=== PATIENT | female | born 1975 | race Caucasian/White ===

== ENCOUNTER 2020-09-28 15:41 | Emergency (ER) | payer BC ==
[2020-09-28 15:49] VITALS: BP 141/87; PULSE 92; RESP 20; TEMP 98.3
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
[2020-09-28] MEDS ORDERED: ACET/COD 300 MG/30 MG STARTER PACK 6 TAB BTL PO STA (18:03)
== END 2020-09-28 18:09 | disposition home or self-care (01) ==
LOC: EC 15:41
DX: S70.01XA Contusion of right hip, initial encounter (principal); S40.011A Contusion of right shoulder, initial encounter; V89.2XXA Person injured in unspecified motor-vehicle accident, traffic, initial encounter; Y92.410 Unspecified street and highway as the place of occurrence of the external cause
CPT/HCPCS: 71046; 73502; 99284

== ENCOUNTER → 2020-11-09 | Outpatient (CLI) | payer BC, OTHER ==
[2020-11-09 15:16] VITALS: BP 124/82; PULSE 74; RESP 18; TEMP 97.7; BMI 47.4
--- NOTE | 2020-11-09 16:02 | P.HPBAR ---
Bariatric H&P - History & Physicial H&P Date: 11/09/20 History & Physicial: Visit/CC: follow up / lap band Patient initial contact: Initial weight: Initial weight in pounds: Height: 5 ft 5 in Initial BMI: Last weight: Current weight: 129.319 kg Current weight in pounds: 285.10 Current BMI: 47.4 [place] body weight (based on NIH guidelines): 56.699 kg Excess body weight loss: The patient is a 45 year-old F who presents for Bariatric Assessment. Patient presents today for laparoscopic band follow. She's not been seen in many years. She states she's clean proximal and 80 pounds over the last 6 months. Past Medical History Past Medical History: No Reported History History of Any Multi-Drug Resistant Organisms: None Reported Past Surgical History: Bariatric Surgery, Cholecystectomy Additional Past Surgical History / Comment(s): Lap band surgery 2007. Past Anesthesia/Blood Transfusion Reactions: Postoperative Nausea & Vomiting (P ONV) Past Psychological History: No Psychological Hx Reported Smoking Status: Never smoker Past Alcohol Use History: None Reported Past Drug Use History: None Reported Surgical - Exam Vital Signs Temp Pulse Resp BP 97.7 F 74 18 124/82 11/09/20 15:05 11/09/20 15:05 11/09/20 15:05 11/09/20 15:05 - General well developed, well nourished, no distress - Eyes PERRL - ENT normal pinna - Neck no masses - Respiratory normal expansion - Cardiovascular Rhythm: regular - Abdomen Abdomen: soft, non tender Bariatric Assessment & Plan Plan: Patient's lap band adjusted. She had 1 mL added. She currently has 3 mL in the band. She'll follow-up in 4 weeks. Bariatric Checklist Checklist: Plan: Checklist: EGD: 1. Hiatal hernia: 2. H. Pylori: HgbA1c: Vitamin D: Smoking: Primary care physician referral: Dr. Balderas ([place]) Psychiatry clearance: Cardiology clearance: Sleep study: Diet journal: VTE risk score: VTE risk level: Rehab needs at discharge:
== END | disposition home or self-care (01) ==
LOC: BARWHC3 14:37
PROVIDERS: ATTEND Surgery
DX: E66.01 Morbid (severe) obesity due to excess calories (principal); Z68.42 Body mass index [BMI] 45.0-49.9, adult
CPT/HCPCS: 99212

== ENCOUNTER → 2020-12-21 | Outpatient (CLI) | payer BC ==
[2020-12-21 13:12] VITALS: BP 131/85; PULSE 86; TEMP 98.1; BMI 47.4
--- NOTE | 2020-12-21 13:35 | P.HPBAR ---
Bariatric H&P - History & Physicial H&P Date: 12/21/20 History & Physicial: Visit/CC: lap band follow up Patient initial contact: Initial weight: Initial weight in pounds: Height: 5 ft 5 in Initial BMI: Last weight: Current weight: 129.274 kg Current weight in pounds: 285.00 Current BMI: 47.4 [place] body weight (based on NIH guidelines): 56.699 kg Excess body weight loss: The patient is a 45 year-old F who presents for Bariatric Assessment. Patient presents today for LAP-BAND follow-up. She's had difficulty with chronic dysphagia. She is unable to have her band adjusted to point where she can feel full she'll was sent up with dysphagia once the band was adjusted significantly. She is requesting conversion to sleeve gastrectomy. Patient also has complaints of pain at her port site. Past Medical History Past Medical History: No Reported History History of Any Multi-Drug Resistant Organisms: None Reported Past Surgical History: Bariatric Surgery, Cholecystectomy Additional Past Surgical History / Comment(s): Lap band surgery 2007. Past Anesthesia/Blood Transfusion Reactions: Postoperative Nausea & Vomiting (PONV) Smoking Status: Never smoker Surgical - Exam Vital Signs Temp Pulse BP 98.1 F 86 131/85 12/21/20 13:10 12/21/20 13:10 12/21/20 13:10 - General well developed, well nourished, no distress - Eyes PERRL - ENT normal pinna - Neck no masses - Respiratory normal expansion - Cardiovascular Rhythm: regular - Abdomen Pain at port site Abdomen: soft, non tender Bariatric Assessment & Plan Plan: Status post gastric band. Patient's had continued issues with dysphagia and port site pain. We will attempt to obtain authorization for conversion to sleeve gastrectomy. Bariatric Checklist Checklist: Plan: Checklist: EGD: 1. Hiatal hernia: 2. H. Pylori: HgbA1c: Vitamin D: Smoking: Primary care physician referral: Dr. Balderas ([place]) Psychiatry clearance: Cardiology clearance: Sleep study: Diet journal: VTE risk score: VTE risk level: Rehab needs at discharge:
== END | disposition home or self-care (01) ==
LOC: BARWHC3 12:45
PROVIDERS: ATTEND Surgery
DX: Z09 Encounter for follow-up examination after completed treatment for conditions other than malignant neoplasm (principal)
CPT/HCPCS: 99211

== ENCOUNTER → 2021-06-28 | Outpatient (CLI) | payer BC ==
[2021-06-28 18:22] LABS: Basophils # (A) 0.06 X 10*3/uL (0.00-0.10); Basophils % (A) 0.7 %; Eosinophils # (A) 0.31 X 10*3/uL (0.04-0.35); Eosinophils % (A) 3.8 %; HCT 37.4 % (37.2-46.3); HGB 10.9 g/dL (12.0-15.0); Immature Grans, Automated 0.4 %; Lymphocytes # (A) 1.79 X 10*3/uL (0.90-5.00); MCH 23.9 pg (27.0-32.0); MCHC 29.1 g/dL (32.0-37.0); MCV 81.8 fL (80.0-97.0); Mean Platelet Volume 10.5 fL (9.5-12.2); Monocytes # (A) 0.69 X 10*3/uL (0.20-1.00); Monocytes % (A) 8.5 %; NRBC Per 100 WBC 0 /100 WBCS (0.0-0.0); Neutrophils # (A) 5.24 X 10*3/uL (1.80-7.70); Neutrophils % (A) 64.6 %; Platelet Count 313 X 10*3/uL (140-440); RBC 4.57 X 10*6/uL (4.10-5.20); RDW 18.8 % (11.5-14.5); WBC 8.12 X 10*3/uL (4.50-10.00)
[2021-06-28 22:15] LABS: ALT 26 U/L (8-44); AST 26 U/L (13-35); African American GFR (CKD) 122.9 (60.0-200.0); Albumin 4.2 g/dL (3.8-4.9); Albumin/Globulin Ratio 1.61 (1.60-3.17); Alkaline Phosphatase 131 U/L (41-126); BUN/Creat Ratio 17.93 Ratio (12.00-20.00); Blood Urea Nitrogen 11.8 mg/dL (9.0-27.0); Calcium 9.4 mg/dL (8.7-10.3); Chloride 104 mmol/L (96-109); Globulin 2.6 g/dL (1.6-3.3); Glucose 93 mg/dL (70-110); Potassium 4.5 mmol/L (3.5-5.5); Sodium 141 mmol/L (135-145); Total Bilirubin <0.15 mg/dL (0.30-1.20); Total Protein 6.8 g/dL (6.2-8.2)
== END | disposition home or self-care (01) ==
LOC: LABPAT 13:39
PROVIDERS: ATTEND Surgery
DX: Z01.812 Encounter for preprocedural laboratory examination (principal)
CPT/HCPCS: 36415; 80053; 85025

== ENCOUNTER → 2021-06-28 | Outpatient (CLI) | payer BC ==
[2021-06-28 12:51] VITALS: BMI 51.0
[2021-06-28 13:55] VITALS: BP 128/80; PULSE 76; TEMP 98.8
== END | disposition home or self-care (01) ==
LOC: BARWHC3 08:37
PROVIDERS: ATTEND Surgery
DX: E66.01 Morbid (severe) obesity due to excess calories (principal); Z68.43 Body mass index [BMI] 50.0-59.9, adult
CPT/HCPCS: 97804; 99211

== ENCOUNTER 2021-07-01 09:46 | Day surgery (SDC) | payer BC ==
[2021-06-29 14:35] VITALS: BMI 50.5
[~2021-07-01 09:46] MED LIST: LACTATED RINGERS 1,000 ML IV SCH; LIDOCAINE 1% (10MG/ML) FOR IV START INTRADERMA PRN
[2021-07-01 10:05] VITALS: RESP 16; TEMP 98.1
[2021-07-01] MEDS ORDERED: PROPOFOL 10 MG/ML 20 ML VIAL IV ONE (10:23)
[2021-07-01] MEDS ORDERED: LIDOCAINE 1% INJ 10MG/ML (20 ML MDV) ONE (10:23)
[2021-07-01] MEDS ORDERED: ONDANSETRON 4 MG/2 ML VIAL ONE (10:23)
--- NOTE | 2021-07-01 10:25 | P.GSHP ---
History of Present Illness H&P Date: 07/01/21 Chief Complaint: GERD, morbid obesity This a 46-year-old female presents today for EGD. Patient underwent workup for sleeve gastrectomy. He is morbidly obese. BMI is 51. She's had some GERD symptoms. Past Medical History Past Medical History: No Reported History Additional Past Medical History / Comment(s): LAP BAND History of Any Multi-Drug Resistant Organisms: None Reported Past Surgical History: Bariatric Surgery, Cholecystectomy Additional Past Surgical History / Comment(s): Lap band surgery 2007. Past Anesthesia/Blood Transfusion Reactions: Postoperative Nausea & Vomiting (PONV) Past Alcohol Use History: None Reported - Past Family History Mother Family Medical History: No Reported History Medications and Allergies Home Medications Medication Instructions Recorded Confirmed Type Cholecalciferol [Vitamin D3 (25 25 mcg PO DAILY 06/29/21 07/01/21 History Mcg = 1000 Iu)] Iron 25 mg PO DAILY 06/29/21 07/01/21 History Naproxen Sodium [Aleve] 220 mg PO DIRECTED PRN 06/29/21 07/01/21 History Vitamin A (Unknown Dose) 1 dose PO DAILY 06/29/21 07/01/21 History Zinc 50 mg PO DAILY 06/29/21 07/01/21 History Allergies Allergy/AdvReac Type Severity Reaction Status Date / Time No Known Allergies Allergy Verified 07/01/21 10:02 Surgical - Exam Vital Signs Temp Pulse Resp BP Pulse Ox 98.1 F 84 16 154/89 100 07/01/21 10:04 07/01/21 10:04 07/01/21 10:04 07/01/21 10:04 07/01/21 10:04 - General well developed, well nourished, no distress - Eyes PERRL - ENT normal pinna - Neck no masses - Respiratory normal expansion - Cardiovascular Rhythm: regular - Abdomen Abdomen: soft, non tender Assessment and Plan Assessment: GERD. Morbid Obesity. We'll perform EGD.
--- NOTE | 2021-07-01 10:31 | P.OP ---
Date of Procedure: 07/01/21 Preoperative Diagnosis: GERD Morbid obesity Postoperative Diagnosis: Antral gastritis Small hiatal hernia Mild esophagitis Procedure(s) Performed: EGD Anesthesia: MAC Surgeon: Isaias Carrasquillo Pathology: other (Antrum, esophagus) Condition: stable Disposition: PACU Description of Procedure: The patient's placed on the endoscopy table in the lateral position she received IV sedation. The gastroscope placed oropharynx passed in the esophagus into the stomach. Scope then placed through the pylorus. The first and second portion of the duodenum appeared normal. Scope summer back the antrum this was mildly inflamed. A biopsies performed. The scope was retroflexed and remainder stomach appeared normal. There was a small hiatal hernia. The GE junction was at 38 cm. The distal esophagus appeared mildly inflamed. A biopsies performed. The proximal esophagus appeared normal. Scope withdrawn for patient.
[2021-07-01 10:50] VITALS: BP 122/79; PULSE 70
== END 2021-07-01 11:15 | disposition home or self-care (01) ==
LOC: ORWHC2ENDO 09:46
PROVIDERS: ATTEND Surgery
DX: K29.50 Unspecified chronic gastritis without bleeding (principal); K21.9 Gastro-esophageal reflux disease without esophagitis; K44.9 Diaphragmatic hernia without obstruction or gangrene; E66.01 Morbid (severe) obesity due to excess calories; Z68.43 Body mass index [BMI] 50.0-59.9, adult; Z98.84 Bariatric surgery status; Z90.49 Acquired absence of other specified parts of digestive tract
CPT/HCPCS: 81025; 88305; 43239; J2405; J2001; J2704

== ENCOUNTER 2021-07-20 06:39 | Observation (INO) | payer BC ==
[~2021-07-20 06:39] MED LIST changes: +ENOXAPARIN 40 MG/0.4 ML SYRINGE SQ PRN; -LACTATED RINGERS 1,000 ML IV SCH; -LIDOCAINE 1% (10MG/ML) FOR IV START INTRADERMA PRN; +ceFAZolin 3 GM in SODIUM CHLORIDE 0.9% 100 ML IVPB PRN
[2021-07-20] MEDS ORDERED: DEXAMETHASONE SOD PHOSPHATE 4 MG/ML 1 ML VIAL IV ONE (06:50)
[2021-07-20] MEDS ORDERED: SCOPOLAMINE 1.5MG/72HR PATCH TRANSDERM ONE (06:50)
[2021-07-20] MEDS ORDERED: LIDOCAINE 1% (10MG/ML) FOR IV START INTRADERMA PRN (06:50)
[2021-07-20] MEDS ORDERED: ONDANSETRON 4 MG/2 ML VIAL IVP ONE (06:50)
[2021-07-20] MEDS ORDERED: LACTATED RINGERS 1,000 ML IV SCH (06:50)
[2021-07-20] MEDS ORDERED: MIDAZOLAM 2 MG/2 ML VIAL IVP ONE (07:33)
[2021-07-20 07:34] LABS: Anisocytosis Slight; Basophils # (A) 0.1 k/uL (0-0.2); Basophils % (A) 1 %; Eosinophils # (A) 0.2 k/uL (0-0.7); Eosinophils % (A) 2 %; HCT 39.4 % (34.0-46.0); HGB 12.4 gm/dL (11.4-16.0); Hypochromasia Slight; Lymphocytes # (A) 1.3 k/uL (1.0-4.8); Lymphocytes % (A) 16 %; MCH 25.7 pg (25.0-35.0); MCHC 31.6 g/dL (31.0-37.0); MCV 81.3 fL (80.0-100.0); Mean Platelet Volume 8.3; Monocytes # (A) 0.5 k/uL (0-1.0); Monocytes % (A) 6 %; Neutrophils % (A) 74 %; Platelet Count 305 k/uL (150-450); RBC 4.85 m/uL (3.80-5.40); RDW 16.1 % (11.5-15.5); WBC 8.1 k/uL (3.8-10.6)
[2021-07-20] MEDS ORDERED: MIDAZOLAM 2 MG/2 ML VIAL ONE (07:47)
[2021-07-20] MEDS ORDERED: fentaNYL (PF) 50 MCG/ML 2 ML AMP ONE (07:47)
[2021-07-20] MEDS ORDERED: KETAMINE 10 MG/ML 20 ML VIAL ONE (07:47)
[2021-07-20] MEDS ORDERED: GLYCOPYRROLATE 0.2 MG/ML 2 ML VIAL ONE (07:47)
[2021-07-20] MEDS ORDERED: HEPARIN SODIUM,PORCINE 5,000 UNIT/ML 1 ML VIAL ONE (07:47)
[2021-07-20] MEDS ORDERED: ROCURONIUM 10 MG/ML (5 ML VIAL) IV ONE (07:47)
[2021-07-20] MEDS ORDERED: PROPOFOL 10 MG/ML 20 ML VIAL IV ONE (07:47)
[2021-07-20] MEDS ORDERED: SUCCINYLCHOLINE CHLORIDE 100 MG/5 ML SYR IV ONE (07:47)
[2021-07-20] MEDS ORDERED: NEOSTIGMINE 1 MG/ML 10 ML VIAL ONE (07:47)
[2021-07-20 07:59] LABS: ALT 20 U/L (4-34); AST 33 U/L (14-36); African American GFR (CKD) >90 (>60 ml/min/1.73 sqM); Albumin 4.1 g/dL (3.5-5.0); Alkaline Phosphatase 97 U/L (38-126); Anion Gap 12 mmol/L; Blood Urea Nitrogen 9 mg/dL (7-17); Calcium 8.5 mg/dL (8.4-10.2); Carbon Dioxide 22 mmol/L (22-30); Chloride 104 mmol/L (98-107); Glucose 74 mg/dL (74-99); Non-African American GFR(CKD) >90 (>60 ml/min/1.73 sqM); Potassium 3.3 mmol/L (3.5-5.1); Sodium 138 mmol/L (137-145); Total Bilirubin 0.6 mg/dL (0.2-1.3); Total Protein 7.5 g/dL (6.3-8.2)
--- NOTE | 2021-07-20 08:07 | P.GSHP ---
History of Present Illness H&P Date: 07/20/21 Chief Complaint: Morbid obesity, dysphagia, GERD Is a 46-year-old female who is morbidly obese. Her BMI is 49. Patient has had issues with her LAP-BAND. She's had issues with dysphagia and GERD. She presents today for removal LAP-BAND conversion sleeve gastrectomy. Patient's aware the risks of surgery including conversion to the open procedure injury to the stomach liver spleen. He is also aware the risk of gastric staple line bleeding and disruption. Past Medical History Past Medical History: No Reported History Additional Past Medical History / Comment(s): HIATAL HERNIA, ANEMIA, LAP BAND History of Any Multi-Drug Resistant Organisms: None Reported Past Surgical History: Bariatric Surgery, Cholecystectomy Additional Past Surgical History / Comment(s): Lap band surgery 2007., PANNICULECTOMY (2011)., EGD Past Anesthesia/Blood Transfusion Reactions: Motion Sickness, Postoperative Nausea & Vomiting (PONV) Past Psychological History: No Psychological Hx Reported Smoking Status: Never smoker Past Alcohol Use History: Rare Past Drug Use History: None Reported - Past Family History Mother Family Medical History: No Reported History Medications and Allergies Home Medications Medication Instructions Recorded Confirmed Type Cholecalciferol [Vitamin D3 (25 25 mcg PO DAILY 06/29/21 07/20/21 History Mcg = 1000 Iu)] Iron 25 mg PO DAILY 06/29/21 07/20/21 History Naproxen Sodium [Aleve] 220 mg PO DIRECTED PRN 06/29/21 07/20/21 History Zinc 50 mg PO DAILY 06/29/21 07/20/21 History Multivitamins, Thera [Multivitamin 1 tab PO DAILY 07/09/21 07/20/21 History (formulary)] Allergies Allergy/AdvReac Type Severity Reaction Status Date / Time No Known Allergies Allergy Verified 07/20/21 06:57 Surgical - Exam Vital Signs Temp Pulse Resp BP Pulse Ox 98.7 F 98 18 123/73 99 07/20/21 07:13 07/20/21 07:13 07/20/21 07:13 07/20/21 07:13 07/20/21 07:13 - General well developed, well nourished, no distress - Eyes PERRL - ENT normal pinna - Neck no masses - Respiratory normal expansion - Cardiovascular Rhythm: regular - Abdomen Abdomen: soft, non tender Results - Labs 07/20/21 07:23 07/20/21 07:23 Abnormal Lab Results - Last 24 Hours (Table) 07/20/21 07/20/21 Range/Units 07:23 07:23 RDW 16.1 H (11.5-15.5) % Potassium 3.3 L (3.5-5.1) mmol/L Diabetes panel 07/20/21 Range/Units 07:23 Sodium 138 (137-145) mmol/L Potassium 3.3 L (3.5-5.1) mmol/L Chloride 104 (98-107) mmol/L Carbon Dioxide 22 (22-30) mmol/L BUN 9 (7-17) mg/dL Creatinine 0.53 (0.52-1.04) mg/dL Glucose 74 (74-99) mg/dL Calcium 8.5 (8.4-10.2) mg/dL AST 33 (14-36) U/L ALT 20 (4-34) U/L Alkaline Phosphatase 97 (38-126) U/L Total Protein 7.5 (6.3-8.2) g/dL Albumin 4.1 (3.5-5.0) g/dL Calcium panel 07/20/21 Range/Units 07:23 Calcium 8.5 (8.4-10.2) mg/dL Albumin 4.1 (3.5-5.0) g/dL Pituitary panel 07/20/21 Range/Units 07:23 Sodium 138 (137-145) mmol/L Potassium 3.3 L (3.5-5.1) mmol/L Chloride 104 (98-107) mmol/L Carbon Dioxide 22 (22-30) mmol/L BUN 9 (7-17) mg/dL Creatinine 0.53 (0.52-1.04) mg/dL Glucose 74 (74-99) mg/dL Calcium 8.5 (8.4-10.2) mg/dL Adrenal panel 07/20/21 Range/Units 07:23 Sodium 138 (137-145) mmol/L Potassium 3.3 L (3.5-5.1) mmol/L Chloride 104 (98-107) mmol/L Carbon Dioxide 22 (22-30) mmol/L BUN 9 (7-17) mg/dL Creatinine 0.53 (0.52-1.04) mg/dL Glucose 74 (74-99) mg/dL Calcium 8.5 (8.4-10.2) mg/dL Total Bilirubin 0.6 (0.2-1.3) mg/dL AST 33 (14-36) U/L ALT 20 (4-34) U/L Alkaline Phosphatase 97 (38-126) U/L Total Protein 7.5 (6.3-8.2) g/dL Albumin 4.1 (3.5-5.0) g/dL Assessment and Plan Assessment: Morbid obesity GERD Dysphagia We'll perform removal of LAP-BAND and conversion to sleeve gastrectomy
[2021-07-20] MEDS ORDERED: BUPIVACAIN-EPI 0.25%-1:200,000 30 ML VIAL SQ ONE ×2 (08:27)
[2021-07-20] MEDS ORDERED: LACTATED RINGERS 1,000 ML IV ONE (09:32)
[2021-07-20] MEDS ORDERED: NALOXONE 0.4 MG/ML 1 ML VIAL IV PRN (09:57)
[2021-07-20] MEDS ORDERED: HYDROcodone/APAP 15 ML SOLUTION PO PRN (09:57)
[2021-07-20] MEDS ORDERED: HYDROmorphone 1 MG/ML 1 ML SYRINGE IVP PRN (09:57)
--- NOTE | 2021-07-20 09:57 | P.OP ---
Date of Procedure: 07/20/21 Preoperative Diagnosis: Morbid obesity, BMI 49 GERD Dysphagia Postoperative Diagnosis: Morbid obesity Adhesions Procedure(s) Performed: Laparoscopic lysis of extensive adhesions Laparoscopic removal of LAP-BAND Laparoscopic sleeve gastrectomy Anesthesia: DC Surgeon: Isaias Carrasquillo Estimated Blood Loss (ml): 25 Pathology: other (LAP-BAND device) Condition: stable Disposition: PACU Description of Procedure: The patient was placed on the operating room table in the supine position. She received general anesthesia and then was placed in dorsal lithotomy position. Her abdomen was prepped and draped in sterile fashion. The skin incision sites were anesthetized 1% local Xylocaine. The patient's LAP-BAND port was in the supraumbilical position. The skin was incised and using cautery and sharp dissection Rishabh port was dissected free and sent to pathology. The connecting tube was cut. And then the skin was incised with an 11 blade in the left lateral position. Using a blade less trocar under direct visualization the peritoneal cavity was entered. The abdomen was insufflated and then a 5 mm laparoscope was placed into the peritoneal cavity. A 5 mm trocar was placed in the right epigastric, and right lateral position. A 15 mm trocar was placed in the supra-umbilical position and another 5 mm trocar was placed in the left lateral position. The left lateral lobe of the liver was retracted. The stomach was visualized. There was extensive adhesions around the stomach and LAP-BAND device. Approximately 20 minutes of operative time used to lyse adhesions. The anterior gastric wall plication was taken down using sharp dissection. The patient had previously placed Nitinol clips holding the gastric plication. Care was taken to identify and preserve the gastric wall. The LAP-BAND device was then cut and then freed from around stomach. The LAP-BAND device and extracted through the 15 mm port site. The greater curvature of the stomach was then dissected using the Harmonic scissors. The dissection occurred approximately 5 cm from the pylorus to the level of the left praneeth. There was no hiatal hernia seen. At this point a 40- Swedish bougie dilator was placed the oropharynx and passed into the esophagus and into the stomach by the WATER TREATMENT TECHNICIAN. The sleeve gastrectomy was performed by using the powered echelon stapler with a seam guard buttress material. Sequential firings of the stapler were performed. The gastric remnant was then brought out through the 15 mm trocar site. The dilator was withdrawn. And a orogastric tube was replaced into the stomach. The stomach was insufflated with 200 mL of methylene blue normal saline. There was no evidence of extravasation. The abdomen was irrigated there is no bleeding seen. The Oj-Randell device was used to close the 15 mm trocar with 0 Vicryl. Skin was closed with interrupted 3-0 Monocryl sutures once the trochars withdrawn. Dermabond dressing was applied. Patient was sent to recovery in stable condition.
[2021-07-20] MEDS: HYDROmorphone 0.5 MG/0.5 ML SYRINGE IVP PRN ×2 (10:15→11:02)
[2021-07-20] MEDS: ALBUTEROL NEBULIZED 2.5 MG/3 ML INHALATION SCH ×4 (12:00→19:46)
[2021-07-20] MEDS: ONDANSETRON 4 MG/2 ML VIAL IVP PRN ×2 (13:39→21:12)
[2021-07-20] MEDS: KETOROLAC 15 MG/ML 1 ML VIAL IVP SCH ×2 (14:25→17:13)
[2021-07-20] MEDS: 0.9% NACL WITH KCL 20 MEQ/L 1,000 ML IV SCH (14:25)
[2021-07-20] MEDS: SIMETHICONE 40 MG/0.6 ML DROPS 2,000 MG/30 ML BOTTLE PO PRN (17:13)
[2021-07-20] MEDS: HYOSCYAMINE ORAL DROPS 1.875 MG/15 ML BOTTLE PO PRN (17:13)
[2021-07-21] MEDS: 0.9% NACL WITH KCL 20 MEQ/L 1,000 ML IV SCH ×2 (00:14→04:51)
[2021-07-21] MEDS: KETOROLAC 15 MG/ML 1 ML VIAL IVP SCH ×4 (00:14→19:35)
[2021-07-21] MEDS: HYOSCYAMINE ORAL DROPS 1.875 MG/15 ML BOTTLE PO PRN ×2 (00:15→05:15)
[2021-07-21] MEDS: SIMETHICONE 40 MG/0.6 ML DROPS 2,000 MG/30 ML BOTTLE PO PRN ×3 (00:15→17:31)
[2021-07-21] MEDS: ONDANSETRON 4 MG/2 ML VIAL IVP PRN (06:04)
[2021-07-21] MEDS: ALBUTEROL NEBULIZED 2.5 MG/3 ML INHALATION SCH ×4 (08:46→20:09)
--- NOTE | 2021-07-21 09:16 | FL ---
EXAMINATION TYPE: FL UGI DATE OF EXAM: 07/21/2021 COMPARISON: None HISTORY: Gastric sleeve TECHNIQUE: A single contrast UGI study is performed. FINDINGS: Contrast passes from the distal esophagus through the gastric sleeve with mild hesitancy. N o extravasation of contrast is evident. Very minimal free air is noted during this examination. Overhead radiographs were obtained which are unremarkable. IMPRESSIONS: 1. Post gastric sleeve without obstruction or significant hesitancy. No extravasation.
[2021-07-21 09:31] LABS: Basophils # (A) 0.01 X 10*3/uL (0.00-0.10); Basophils % (A) 0.1 %; Eosinophils # (A) 0 X 10*3/uL (0.04-0.35); Eosinophils % (A) 0 %; HCT 37.2 % (37.2-46.3); HGB 11.1 g/dL (12.0-15.0); Immature Grans, Automated 0.3 %; Lymphocytes # (A) 0.89 X 10*3/uL (0.90-5.00); Lymphocytes % (A) 7.1 %; MCH 24.3 pg (27.0-32.0); MCHC 29.8 g/dL (32.0-37.0); MCV 81.4 fL (80.0-97.0); Mean Platelet Volume 10.9 fL (9.5-12.2); Monocytes # (A) 1.01 X 10*3/uL (0.20-1.00); NRBC Per 100 WBC 0 /100 WBCS (0.0-0.0); Neutrophils # (A) 10.64 X 10*3/uL (1.80-7.70); Neutrophils % (A) 84.5 %; Platelet Count 343 X 10*3/uL (140-440); RBC 4.57 X 10*6/uL (4.10-5.20); RDW 17.3 % (11.5-14.5); WBC 12.59 X 10*3/uL (4.50-10.00)
[2021-07-21] MEDS: ENOXAPARIN 40 MG/0.4 ML SYRINGE SQ SCH (09:35)
[2021-07-21 09:40] LABS: African American GFR (CKD) 126.5 (60.0-200.0); Anion Gap 13.5 mmol/L (10.00-18.00); Blood Urea Nitrogen 5.1 mg/dL (9.0-27.0); Carbon Dioxide 15.1 mmol/L (20.0-27.5); Non-African American GFR(CKD) 109.1 (60.0-200.0); Potassium 4.9 mmol/L (3.5-5.5)
[2021-07-21] MEDS: PANTOPRAZOLE 40 MG/10 ML VIAL IV SCH (09:47)
[2021-07-21] MEDS: METOCLOPRAMIDE 5 MG/ML 2 ML VIAL IVP PRN ×2 (10:00→19:35)
[2021-07-21] MEDS: 1: THIAMINE 100 MG, FOLIC ACID 1 MG, POTASSIUM CHLORIDE 20 MEQ in SODIUM CHLORIDE 0.9% 1 IVPB SCH ×10 (10:37→23:11)
--- NOTE | 2021-07-21 13:31 | P.CONS ---
History of Present Illness - Reason for Consult Consult date: 07/21/21 Medical management, lap band removal status post LEEP gastrectomy - History of Present Illness This is a pleasant 46 are old female who was recently admitted under Gen. surgery services for subsequent removal of lap band with conversion of sleeve gastrectomy postop day #1. Patient denies past medical history except for morbid obesity and has been having some dysphagia and acid reflux. Patient had initial lap band surgery back in 2007 and also underwent panniculectomy in 2011. Patient follows with primary care provider Dr. Remington Balderas. Patient denies smoking or illicit drug use and will very socially on occasion drink some alcohol. Labs today reveal a white blood count of 12.59, hemoglobin is 11.1, platelets are 343, sodium is 138, potassium 4.9, chloride 110, carbon dioxide 15.1, BUN 5.1, creatinine 0.6, calcium 8.0 and magnesium is 2.0. We are consulted for medical management and will continue to follow with oral surgery. Patient underwent upper GI series today with no obstruction or significant he sitancy noted and no extravasation noted as well. Review Of Systems: Constitutional: No fever, no chills, no night sweats. No weight change. No weakness, fatigue or lethargy. No daytime sleepiness. EENT: No headache. No blurred vision or double vision, no loss of vision. No loss of Hearing, no ringing in the ears, no dizziness. No nasal drainage or congestion. No epistaxis. No sore throat. Lungs: No shortness of breath, cough, no sputum production. No wheezing. Cardiovascular: No chest pain, no lower extremity edema. No palpitations. No paroxysmal nocturnal dyspnea. No orthopnea. No lightheadedness or dizziness. No syncopal episodes. Abdominal: Reports abdominal discomfort although improved from yesterday. No nausea, vomiting. Reports passing gas with no bowel movement yet. No constipation. No bloody or tarry stools.. No loss of appetite. Genitourinary: No dysuria, increased frequency, urgency. No urinary retention. Musculoskeletal: No myalgias. No muscle weakness, no gait dysfunction, no frequent falls. No back pain. No neck pain. Integumentary: No wounds, no lesions. No rash or pruritus. No unusual bruising. No change in hair or nails. Neurologic: No aphasia. No facial droop. No change in mentation. No head injury. No headache. No paralysis. No paresthesia. Psychiatric: No depression. No anxiety. No mood swings. Endocrine: No abnormal blood sugars. No weight change. No excessive sweating or thirst. No cold intolerance. Active Medications Hydrocodone Bitart/Acetaminophen (Hydrocodone/Apap 15 Ml Solution) 30 ml PO Q6HR PRN PRN Reason: Severe Pain Stop: 08/19/21 09:58 Last Admin: 07/21/21 09:32 Dose: 30 ml Documented by: Albuterol Sulfate (Albuterol Nebulized 2.5 Mg/3 Ml) 2.5 mg INHALATION RT-QID DOLLY Stop: 08/19/21 12:01 Last Admin: 07/21/21 11:43 Dose: 2.5 mg Documented by: Enoxaparin Sodium (Enoxaparin 40 Mg/0.4 Ml Syringe) 40 mg SQ DAILY DOLLY Stop: 08/20/21 09:01 Last Admin: 07/21/21 09:35 Dose: 40 mg Documented by: Hydromorphone HCl (Hydromorphone 1 Mg/Ml 1 Ml Syringe) 1 mg IVP Q3HR PRN PRN Reason: Pain Stop: 08/19/21 09:58 Last Admin: 07/20/21 21:12 Dose: 1 mg Documented by: Hyoscyamine (Hyoscyamine Oral Drops 1.875 Mg/15 Ml Bottle) 0.125 mg PO Q6HR PRN PRN Reason: Esophageal Spasm Stop: 08/19/21 09:58 Last Admin: 07/21/21 05:15 Dose: 0.125 mg Documented by: Thiamine HCl 100 mg/ Folic Acid 1 mg/ Potassium Chloride 20 meq/ Sodium Chloride 1,011.2 mls @ 100 mls/hr IVPB .BY DURATION [facility] Stop: 08/20/21 08:01 Last Admin: 07/21/21 10:37 Dose: 100 mls/hr Documented by: Potassium Chloride/Sodium Chloride (Ns-Kcl 20 Meq/L Iv Solution) 1,000 mls @ 100 mls/hr IVPB .BY DURATION [facility] Stop: 08/20/21 08:01 Ketorolac Tromethamine (Ketorolac 15 Mg/Ml 1 Ml Vial) 15 mg IVP Q6HR DOLLY Stop: 07/22/21 06:01 Last Admin: 07/21/21 05:02 Dose: 15 mg Documented by: Lidocaine HCl (Lidocaine 1% (10mg/Ml) For Iv Start) 0.1 ml INTRADERMA PER PROTOCOL PRN PRN Reason: IV Start Stop: 08/19/21 06:51 Last Admin: 07/20/21 07:26 Dose: 0.1 ml Documented by: Metoclopramide HCl (Metoclopramide 5 Mg/Ml 2 Ml Vial) 10 mg IVP Q6HR PRN PRN Reason: Nausea Last Admin: 07/21/21 10:00 Dose: 10 mg Documented by: Naloxone HCl (Naloxone 0.4 Mg/Ml 1 Ml Vial) 0.2 mg IV Q2M PRN PRN Reason: Opioid Reversal Stop: 08/19/21 09:58 Pantoprazole Sodium (Pantoprazole 40 Mg/10 Ml Vial) 40 mg IV DAILY DOLLY Stop: 08/20/21 09:01 Last Admin: 07/21/21 09:47 Dose: 40 mg Documented by: Simethicone (Simethicone 40 Mg/0.6 Ml Drops 2,000 Mg/30 Ml Bottle) 40 mg PO Q6HR PRN PRN Reason: Bloating Stop: 08/19/21 09:58 Last Admin: 07/21/21 05:15 Dose: 40 mg Documented by: PHYSICAL EXAMINATION: GENERAL: The patient is alert and oriented x4, Well developed, well nourished. Morbidly obese HEENT: Pupils are round and equally reacting to light. EOMI. no scleral icterus. No conjunctival pallor. Normocephalic, atraumatic. No pharyngeal erythema. No thyromegaly. CARDIOVASCULAR: S1 and S2 muffled PULMONARY: diminished breath sounds bilaterally with no wheezing or rhonchi noted. ABDOMEN: soft. mildly tender on exam. obese. non-distended, normoactive bowel sounds. No palpable organomegaly. MUSCULOSKELETAL: No joint swelling or deformity. EXTREMITIES: No cyanosis, clubbing, or pedal edema. NEUROLOGICAL: Gross neurological examination did not reveal any focal deficits. SKIN: No rashes. Assessment: Status post lap band removal with conversion sleeve gastrectomy postop day #1 Dysphasia Gastroesophageal reflux disease Hypokalemia, improved currently 4.9 today was initially 3.3 Mild leukocytosis, most likely reactive and will repeat CBC Morbid obesity GI prophylaxis DVT prophylaxis Full code Plan: Recommend to continue with current medications and management per general surgery services. Patient underwent upper GI series with no complications in no rmal study. Patient is continued on bariatric clear liquid diet and will continue per surgical recommendations. Patient without an extensive past medical history and normally takes vitamin supplements in the outpatient setting and will hold until discharge. Incentive spirometer at the bedside and encourage the patient to continue using at least 10 times every hour while awake. Patient also instructed to increase activity as tolerated. Potassium slightly low yesterday of 3.3 and was replaced and repeat potassium is 4.9 today. WBC 12.59 and mildly elevated most likely reactive will repeat labs and monitor closely. Will continue to follow along with general surgery during hospitalization. Thank you for this consultation. The impression and plan of care has been dictated by Steff Fields, nurse practitioner as directed. Dr. Sofia MD I have performed a history and examination and MDM of this patient, discussed the same with the dictator, and agree with the dictator's assessment and plan as written ,documented as a scribe. Based on total visit time, I have performed more than 50% of the visit. Any additional findings or plans will be noted. Review of Systems Constitutional: Denies chills, Denies fever Past Medical History Past Medical History: No Reported History Additional Past Medical History / Comment(s): HIATAL HERNIA, ANEMIA, LAP BAND History of Any Multi-Drug Resistant Organisms: None Reported Past Surgical History: Bariatric Surgery, Cholecystectomy Additional Past Surgical History / Comment(s): Lap band surgery 2007., PANNICULECTOMY (2011)., EGD Past Anesthesia/Blood Transfusion Reactions: Motion Sickness, Postoperative Nausea & Vomiting (PONV) Past Psychological History: No Psychological Hx Reported Smoking Status: Never smoker Past Alcohol Use History: Rare Past Drug Use History: None Reported - Past Family History Mother Family Medical History: No Reported History Medications and Allergies Home Medications Medication Instructions Recorded Confirmed Type Cholecalciferol [Vitamin D3 (25 25 mcg PO DAILY 06/29/21 07/20/21 History Mcg = 1000 Iu)] Iron 25 mg PO DAILY 06/29/21 07/20/21 History Naproxen Sodium [Aleve] 220 mg PO DIRECTED PRN 06/29/21 07/20/21 History Zinc 50 mg PO DAILY 06/29/21 07/20/21 History Multivitamins, Thera [Multivitamin 1 tab PO DAILY 07/09/21 07/20/21 History (formulary)] Allergies Allergy/AdvReac Type Severity Reaction Status Date / Time No Known Allergies Allergy Verified 07/20/21 06:57 Physical Exam Vitals: Vital Signs Temp Pulse Pulse Resp BP Pulse Ox 07/21/21 11:55 78 07/21/21 11:44 80 98 07/21/21 07:20 97.8 F 89 18 135/81 07/21/21 01:19 98.5 F 99 16 122/72 96 07/20/21 19:17 98.0 F 83 16 170/76 100 07/20/21 17:39 97.7 F 72 16 144/83 100 07/20/21 14:00 97.8 F 74 17 144/82 97 Intake and Output 07/20/21 07/21/21 07/21/21 22:59 06:59 14:59 Other: Voiding Method Toilet Toilet # Voids 0 1 Results CBC & Chem 7: 07/21/21 05:46 07/21/21 05:46 Labs: Abnormal Lab Results - Last 24 Hours (Table) 07/21/21 07/21/21 Range/Units 05:46 05:46 WBC 12.59 H (4.50-10.00) X 10*3/uL Hgb 11.1 L (12.0-15.0) g/dL MCH 24.3 L (27.0-32.0) pg MCHC 29.8 L (32.0-37.0) g/dL RDW 17.3 H (11.5-14.5) % Neutrophils # 10.64 H (1.80-7.70) X 10*3/uL Lymphocytes # 0.89 L (0.90-5.00) X 10*3/uL Monocytes # 1.01 H (0.20-1.00) X 10*3/uL Eosinophils # 0 L (0.04-0.35) X 10*3/uL Chloride 110 H (96-109) mmol/L Carbon Dioxide 15.1 L (20.0-27.5) mmol/L BUN 5.1 L (9.0-27.0) mg/dL Calcium 8.0 L (8.7-10.3) mg/dL Phosphorus 2.0 L (2.4-5.1) mg/dL Assessment and Plan Time with Patient: Greater than 30
--- NOTE | 2021-07-21 14:45 | P.PN ---
Subjective Progress Note Date: 07/21/21 CHIEF COMPLAINT: Morbid obesity HISTORY OF PRESENT ILLNESS: Patient is postop day #1 status post laparoscopic sleeve gastrectomy, lysis of extensive adhesions, and removal of lap band. Patient's upper GI shows no evidence of leak or obstruction. Patient tolerating bariatric clear liquid diet. She has been having nausea. Denies any flatus. She has not been up and ambulating. She is afebrile. WBC is up at 12.59 but she did receive dexamethasone hemoglobin 11.1 platelets 343 potassium 4.9 creatinine 0.6 magnesium 2.0 PHYSICAL EXAM: VITAL SIGNS: Reviewed. GENERAL: Well-developed in no acute distress. HEENT: No sclera icterus. Extraocular movements grossly intact. Moist buccal mucosa. Head is atraumatic, normocephalic. ABDOMEN: Soft. Nondistended. NEUROLOGIC: Alert and oriented. Cranial nerves II through XII grossly intact. ASSESSMENT: 1. Morbid obesity and if he is status post laparoscopic sleeve gastrectomy, lysis of extensive adhesions, and removal of lap band PLAN: -Continue bariatric clear liquid diet -Continue pain medication as needed -Continue IV fluids -Encourage patient to ambulate -GI prophylaxis Protonix and DVT prophylaxis Lovenox -Anticipate discharge tomorrow Physician Auto Body Man note has been reviewed by physician. Signing provider agrees with the documented findings, assessment, and plan of care. Objective - Vital Signs Vital signs: Vital Signs Temp 97.8 F 07/21/21 07:20 Pulse 78 07/21/21 11:55 Resp 18 07/21/21 07:20 BP 135/81 07/21/21 07:20 Pulse Ox 98 07/21/21 11:44 Intake & Output 07/20/21 07/21/21 07/21/21 18:59 06:59 18:59 Intake Total 2200 Output Total 25 Balance 2175 Weight 132.2 kg Intake: IV 2200 Output: Estimated Blood Loss 25 Other: Voiding Method Toilet Toilet # Voids 0 1 - Labs CBC & Chem 7: 07/21/21 05:46 07/21/21 05:46 Labs: Abnormal Lab Results - Last 24 Hours (Table) 07/21/21 07/21/21 Range/Units 05:46 05:46 WBC 12.59 H (4.50-10.00) X 10*3/uL Hgb 11.1 L (12.0-15.0) g/dL MCH 24.3 L (27.0-32.0) pg MCHC 29.8 L (32.0-37.0) g/dL RDW 17.3 H (11.5-14.5) % Neutrophils # 10.64 H (1.80-7.70) X 10*3/uL Lymphocytes # 0.89 L (0.90-5.00) X 10*3/uL Monocytes # 1.01 H (0.20-1.00) X 10*3/uL Eosinophils # 0 L (0.04-0.35) X 10*3/uL Chloride 110 H (96-109) mmol/L Carbon Dioxide 15.1 L (20.0-27.5) mmol/L BUN 5.1 L (9.0-27.0) mg/dL Calcium 8.0 L (8.7-10.3) mg/dL Phosphorus 2.0 L (2.4-5.1) mg/dL
[2021-07-22] MEDS: KETOROLAC 15 MG/ML 1 ML VIAL IVP SCH ×2 (00:10→06:21)
[2021-07-22 07:47] VITALS: BP 128/78; RESP 18; TEMP 98.8
[2021-07-22] MEDS: 1: THIAMINE 100 MG, FOLIC ACID 1 MG, POTASSIUM CHLORIDE 20 MEQ in SODIUM CHLORIDE 0.9% 1 IVPB SCH ×5 (07:50)
[2021-07-22] MEDS: PANTOPRAZOLE 40 MG/10 ML VIAL IV SCH (08:11)
[2021-07-22] MEDS: ENOXAPARIN 40 MG/0.4 ML SYRINGE SQ SCH (08:12)
[2021-07-22 08:19] VITALS: BMI 48.4
[2021-07-22] MEDS: ALBUTEROL NEBULIZED 2.5 MG/3 ML INHALATION SCH ×2 (08:26→11:48)
[2021-07-22 09:06] LABS: Basophils # (A) 0.06 X 10*3/uL (0.00-0.10); Basophils % (A) 0.7 %; Eosinophils # (A) 0.04 X 10*3/uL (0.04-0.35); Eosinophils % (A) 0.5 %; HCT 32.8 % (37.2-46.3); HGB 9.9 g/dL (12.0-15.0); Immature Grans, Automated 0.2 %; Lymphocytes # (A) 1.48 X 10*3/uL (0.90-5.00); Lymphocytes % (A) 18.3 %; MCH 24.6 pg (27.0-32.0); MCHC 30.2 g/dL (32.0-37.0); MCV 81.4 fL (80.0-97.0); Monocytes # (A) 0.72 X 10*3/uL (0.20-1.00); Monocytes % (A) 8.9 %; NRBC Per 100 WBC 0 /100 WBCS (0.0-0.0); Neutrophils # (A) 5.78 X 10*3/uL (1.80-7.70); Neutrophils % (A) 71.4 %; Platelet Count 301 X 10*3/uL (140-440); RBC 4.03 X 10*6/uL (4.10-5.20); RDW 17.9 % (11.5-14.5)
[2021-07-22 09:23] LABS: BUN/Creat Ratio 8.93 Ratio (12.00-20.00)
[2021-07-22 09:24] LABS: African American GFR (CKD) 135.1 (60.0-200.0); Anion Gap 9.6 mmol/L (10.00-18.00); Blood Urea Nitrogen 4.4 mg/dL (9.0-27.0); Carbon Dioxide 17.6 mmol/L (20.0-27.5); Non-African American GFR(CKD) 116.5 (60.0-200.0); Potassium 4.5 mmol/L (3.5-5.5)
--- NOTE | 2021-07-22 10:26 | P.DS ---
Providers Date of admission: 07/20/21 21:18 Expected date of discharge: 07/22/21 Attending physician: Isaias Carrasquillo Consults: 07/20/21 09:57 Consult Physician Routine Consulting Provider: Christopher Black Consult Reason/Comments: Medical management Do you want consulting provider notified?: Yes Primary care physician: Remington Weaver [facility] Course: Discharge diagnosis 1. Morbid obesity and she is status post laparoscopic sleeve gastrectomy, lysis of extensive adhesions, and removal of lap band Hospital course This is a 46-year-old female with history of morbid obesity. Her BMI is 49. Patient has had issues with her LAP-BAND. She's had issues with dysphagia and GERD. Patient is status post laparoscopic sleeve gastrectomy, lysis of extensive adhesions, and removal of lap band. She tolerated surgery well. Her upper GI shows no evidence of leak or obstruction. She's tolerating her bariatric clear liquids. Her abdominal pain is controlled. She denies any nausea vomiting. Incision sites clean dry and intact. Afebrile. She is up and ambulating. She is stable for discharge. Please refer to chart for any further details. Physician Podiatry Professor note has been reviewed by physician. Signing provider agrees with the documented findings, assessment, and plan of care. Patient Condition at Discharge: Stable Plan - Discharge Summary Discharge Rx Participant: Yes New Discharge Prescriptions: New Ondansetron Odt [Zofran Odt] 4 mg PO Q8HR PRN #9 tab PRN Reason: Nausea bisacodyL [Dulcolax] 5 mg PO DAILY PRN #10 tab PRN Reason: Constipation Simethicone 40 mg/0.6 ml Drops [Mylicon Drops] 40 mg PO PCHS PRN #30 ml PRN Reason: Gas Omeprazole [PriLOSEC] 40 mg PO DAILY #30 cap HYDROcodone/APAP 5-325MG [Cisco 5-325] 1 tab PO Q6HR PRN 2 Days #5 tab PRN Reason: Pain Continue Multivitamins, Thera [Multivitamin (formulary)] 1 tab PO DAILY Cholecalciferol [Vitamin D3 (25 Mcg = 1000 Iu)] 25 mcg PO DAILY Iron 25 mg PO DAILY Zinc 50 mg PO DAILY Discontinued Naproxen Sodium [Aleve] 220 mg PO DIRECTED PRN PRN Reason: Pain Discharge Medication List Cholecalciferol [Vitamin D3 (25 Mcg = 1000 Iu)] 25 mcg PO DAILY 06/29/21 [History] Iron 25 mg PO DAILY 06/29/21 [History] Zinc 50 mg PO DAILY 06/29/21 [History] Multivitamins, Thera [Multivitamin (formulary)] 1 tab PO DAILY 07/09/21 [History] HYDROcodone/APAP 5-325MG [Cisco 5-325] 1 tab PO Q6HR PRN 2 Days #5 tab 07/22/21 [Rx] Omeprazole [PriLOSEC] 40 mg PO DAILY #30 cap 07/22/21 [Rx] Ondansetron Odt [Zofran Odt] 4 mg PO Q8HR PRN #9 tab 07/22/21 [Rx] Simethicone 40 mg/0.6 ml Drops [Mylicon Drops] 40 mg PO PCHS PRN #30 ml 07/22/21 [Rx] bisacodyL [Dulcolax] 5 mg PO DAILY PRN #10 tab 07/22/21 [Rx] [place] [facility] [facility] Patient Instructions/Handouts: Laparoscopic Sleeve Gastrectomy (DC) Activity/Diet/Wound Care/Special Instructions: No driving while taking Cisco No lifting over 10 pounds You may shower. No soaking or tub baths for 2 weeks Very light activity until you are reevaluated at your follow up appointment with your surgeon No straws or carbonated beverages Discharge Disposition: HOME SELF-CARE
--- NOTE | 2021-07-22 10:36 | P.PN ---
Subjective This is a pleasant 46 are old female who was recently admitted under Gen. surgery services for subsequent removal of lap band with conversion of sleeve gastrectomy postop day #1. Patient denies past medical history except for morbid obesity and has been having some dysphagia and acid reflux. Patient had initial lap band surgery back in 2007 and also underwent panniculectomy in 2011. Patient follows with primary care provider Dr. Remington Balderas. Patient denies smoking or illicit drug use and will very socially on occasion drink some alcohol. Labs today reveal a white blood count of 12.59, hemoglobin is 11.1, platelets are 343, sodium is 138, potassium 4.9, chloride 110, carbon dioxide 15.1, BUN 5.1, creatinine 0.6, calcium 8.0 and magnesium is 2.0. We are consulted for medical management and will continue to follow with oral surgery. Patient underwent upper GI series today with no obstruction or significant hesitancy noted and no extravasation noted as well. 07/23 2011 Patient clinically doing well, she denies any pain at the surgical site, she tolerates liquid diet well. No vomiting. Did not have bowel movement or passing gas yet. She is walking fine with no difficulty. Hemodynamically stable. Labs reviewed, WBC is 8.1, hemoglobin 11.1 came down to 9.9, with some evidence of hematoma delusion. Platelets also down from 343 Dr. 301. Patient clinically doing well, actually she told me she wants to go home today. She denies any other specific symptoms with surgery primary team on the case. Objective - Vital Signs Vital signs: Vital Signs Temp 98.8 F 07/22/21 06:55 Pulse 83 07/22/21 08:45 Resp 18 07/22/21 06:55 BP 128/78 07/22/21 06:55 Pulse Ox 100 07/22/21 08:27 Intake & Output 07/21/21 07/22/21 07/22/21 18:59 06:59 18:59 Weight 132.2 kg Other: Voiding Method Toilet Toilet Toilet # Voids 2 - Exam -GENERAL: The patient is alert and oriented x3, not in any acute distress. Morbidly obese HEENT: Pupils are round and equally reacting to light. EOMI. No scleral icterus. No conjunctival pallor. Normocephalic, atraumatic. No pharyngeal erythema. No thyromegaly. CARDIOVASCULAR: S1 and S2 present. No murmurs, rubs, or gallops. PULMONARY: Chest is clear to auscultation, no wheezing or crackles. ABDOMEN: Soft, nontender, nondistended, normoactive bowel sounds. No palpable organomegaly. MUSCULOSKELETAL: No joint swelling or deformity. EXTREMITIES: No cyanosis, clubbing, or pedal edema. NEUROLOGICAL: Gross neurological examination did not reveal any focal deficits. SKIN: No rashes. no petechiae. - Labs CBC & Chem 7: 07/22/21 05:36 07/22/21 05:36 Labs: Abnormal Lab Results - Last 24 Hours (Table) 07/22/21 07/22/21 Range/Units 05:36 05:36 RBC 4.03 L (4.10-5.20) X 10*6/uL Hgb 9.9 L (12.0-15.0) g/dL Hct 32.8 L (37.2-46.3) % MCH 24.6 L (27.0-32.0) pg MCHC 30.2 L (32.0-37.0) g/dL RDW 17.9 H (11.5-14.5) % Chloride 112 H (96-109) mmol/L Carbon Dioxide 17.6 L (20.0-27.5) mmol/L Anion Gap 9.60 L (10.00-18.00) mmol/L BUN 4.4 L (9.0-27.0) mg/dL Creatinine 0.5 L (0.6-1.5) mg/dL BUN/Creatinine Ratio 8.93 L (12.00-20.00) Ratio Calcium 8.0 L (8.7-10.3) mg/dL Assessment and Plan Assessment: Status post lap band removal with conversion sleeve gastrectomy postop day #2 History of Gastroesophageal reflux disease Hypokalemia, improved currently 4.5 today was initially 3.3 Mild leukocytosis, reactive, resolved Morbid obesity GI prophylaxis DVT prophylaxis Full code Plan: This is a pleasant 46 years old female, she is status post laparoscopic sleeve gastrectomy we recommend keep monitoring hemoglobin, although patient with no evidence of bleeding, most likely postop effect. There is also some evidence of hemoglobin delusion Labs and medication were reviewed.. Continue same treatment. Continue with symptomatic treatment. Resume home medication. Monitor lytes and vitals. DVT and GI prophylaxis. Further recommendationsas per clinical course of the patient Medically looks his stable
[2021-07-22 12:02] VITALS: PULSE 83
== END 2021-07-22 13:25 | disposition home or self-care (01) ==
LOC: OR 06:39 → 4SSUR 09:33 → OR 21:18
PROVIDERS: ADMIT Surgery; ATTEND Surgery
DX: E66.01 Morbid (severe) obesity due to excess calories (principal); Z68.42 Body mass index [BMI] 45.0-49.9, adult; K29.50 Unspecified chronic gastritis without bleeding; K21.9 Gastro-esophageal reflux disease without esophagitis; R13.10 Dysphagia, unspecified; D64.9 Anemia, unspecified; K66.0 Peritoneal adhesions (postprocedural) (postinfection); D72.829 Elevated white blood cell count, unspecified; R47.02 Dysphasia; E87.6 Hypokalemia; K44.9 Diaphragmatic hernia without obstruction or gangrene; Z90.49 Acquired absence of other specified parts of digestive tract; Z98.84 Bariatric surgery status; Z71.9 Counseling, unspecified
CPT/HCPCS: 94640 ×4; 94760; 97161; 97166; 81025; 80051; 80053; 80048; 82310; 82565; 83735; 84100; 84520; 85025 ×3; 88307; 74240; 43772; 43775; 49329; G0378 ×3; J2250; J1644; J1100; J2710; J2765; J3411; J0690; J2405 ×2; J3480; J1650 ×2; J3010; J1170 ×2; J1885 ×3; J0330; J2704; C9113 ×2; Q9967; J1790

== ENCOUNTER → 2021-07-28 | Outpatient (CLI) | payer BC ==
[2021-07-28 11:21] VITALS: BP 128/87; PULSE 87; RESP 16; TEMP 98.1
[2021-07-28] MEDS: SODIUM CHLORIDE 0.9% 1,000 ML IV SCH ×2 (11:22→11:50)
== END | disposition home or self-care (01) ==
LOC: PROCWHC3 11:00
PROVIDERS: ATTEND Surgery Plastic and Reconstructive Surgery
DX: E86.0 Dehydration (principal)
CPT/HCPCS: 96360; 96361

== ENCOUNTER → 2021-07-28 | Outpatient (CLI) | payer BC ==
[2021-07-28 11:35] VITALS: BP 128/80; PULSE 78; TEMP 98; BMI 46.2
== END | disposition home or self-care (01) ==
LOC: BARWHC3 10:02
PROVIDERS: ATTEND Surgery
DX: E66.01 Morbid (severe) obesity due to excess calories (principal); Z71.3 Dietary counseling and surveillance
CPT/HCPCS: 97802; 99211

== ENCOUNTER → 2021-08-16 | Outpatient (CLI) | payer BC ==
[2021-08-16 15:03] VITALS: BP 117/82; PULSE 80; RESP 16; TEMP 98.1; BMI 45.6
[2021-08-16 22:50] LABS: HCT 37.3 % (37.2-46.3); HGB 11.3 g/dL (12.0-15.0); MCH 24.2 pg (27.0-32.0); MCHC 30.3 g/dL (32.0-37.0); MCV 79.9 fL (80.0-97.0); Mean Platelet Volume 11.5 fL (9.5-12.2); NRBC Per 100 WBC 0 /100 WBCS (0.0-0.0); Platelet Count 305 X 10*3/uL (140-440); RBC 4.67 X 10*6/uL (4.10-5.20); RDW 17.5 % (11.5-14.5); WBC 4.66 X 10*3/uL (4.50-10.00)
[2021-08-17 00:37] LABS: % Iron Saturation 3.89 (12.00-45.00); Ferritin 11.4 ng/mL (10.0-291.0)
[2021-08-17 12:39] LABS: Zinc, Serum 65 ug/dL (60-130)
[2021-08-18 08:31] LABS: Vit B1(Thiamine) 40 ug/L (38-122)
[2021-08-18 08:37] LABS: Vitamin A 25 ug/dL (38-106)
== END | disposition home or self-care (01) ==
LOC: BARWHC3 14:18
PROVIDERS: ATTEND Surgery
DX: E66.01 Morbid (severe) obesity due to excess calories (principal); D50.8 Other iron deficiency anemias; E44.0 Moderate protein-calorie malnutrition; E55.9 Vitamin D deficiency, unspecified; T56.894A Toxic effect of other metals, undetermined, initial encounter
CPT/HCPCS: 36415; 82306; 82607; 82728; 82746; 83540; 83550; 83735; 84255; 84425; 84443; 84590; 84630; 85027; 97803; 99211

== ENCOUNTER → 2021-08-30 | Outpatient (CLI) | payer BC ==
[2021-08-30 14:30] VITALS: BP 139/83; PULSE 89; TEMP 98.1; BMI 44.4
--- NOTE | 2021-08-30 14:52 | P.HPBAR ---
Bariatric H&P - History & Physicial H&P Date: 08/30/21 History & Physicial: Visit/CC: SLEEVE F/U Patient initial contact: Initial weight: Initial weight in pounds: Height: 5 ft 5 in Initial BMI: Last weight: Current weight: 121.109 kg Current weight in pounds: 267.00 Current BMI: 44.4 [place] body weight (based on NIH guidelines): 56.699 kg Excess body weight loss: The patient is a 46 year-old F who presents for Bariatric Assessment.patient is doing fairly well. She's lost another 7 pounds. She has some issues with fatigue. She's had minimal GERD. Past Medical History Past Medical History: No Reported History Additional Past Medical History / Comment(s): HIATAL HERNIA, ANEMIA, LAP BAND History of Any Multi-Drug Resistant Organisms: None Reported Past Surgical History: Bariatric Surgery, Cholecystectomy Additional Past Surgical History / Comment(s): Lap band surgery 2007. lap band removal conversion to sleeve gastrectomy 07-19-21 Past Anesthesia/Blood Transfusion Reactions: Postoperative Nausea & Vomiting (PONV) Past Psychological History: No Psychological Hx Reported Smoking Status: Never smoker Past Alcohol Use History: None Reported Past Drug Use History: None Reported - Past Family History Mother Family Medical History: No Reported History Surgical - Exam Vital Signs Temp Pulse BP 98.1 F 89 139/83 08/30/21 14:24 08/30/21 14:24 08/30/21 14:24 - General well developed, well nourished, no distress - Eyes PERRL - ENT normal pinna - Neck no masses - Respiratory normal expansion - Cardiovascular Rhythm: regular - Abdomen Abdomen: soft, non tender Bariatric Assessment & Plan Plan: patient's GERD is minimal and will be observed. She'll follow-up in 4 weeks. Bariatric Checklist Checklist: Plan: Checklist: EGD: 1. Hiatal hernia: 2. H. Pylori: HgbA1c: Vitamin D: Smoking: Primary care physician referral: DR. PERALTA Psychiatry clearance: Cardiology clearance: Sleep study: Diet journal: VTE risk score: VTE risk level: Rehab needs at discharge:
== END | disposition home or self-care (01) ==
LOC: BARWHC3 13:55
PROVIDERS: ATTEND Surgery
DX: K21.9 Gastro-esophageal reflux disease without esophagitis (principal); E66.01 Morbid (severe) obesity due to excess calories; Z71.3 Dietary counseling and surveillance
CPT/HCPCS: 99211

== ENCOUNTER → 2021-10-04 | Outpatient (CLI) | payer BC ==
[2021-10-04 14:12] VITALS: BP 127/80; PULSE 91; TEMP 98; BMI 42.5
--- NOTE | 2021-10-04 15:55 | P.HPBAR ---
Bariatric H&P - History & Physicial H&P Date: 10/04/21 History & Physicial: Visit/CC: sleeve f/u Patient initial contact: Initial weight: Initial weight in pounds: Height: 5 ft 5 in Initial BMI: Last weight: Current weight: 116.029 kg Current weight in pounds: 255.80 Current BMI: 42.5 [place] body weight (based on NIH guidelines): 56.699 kg Excess body weight loss: The patient is a 46 year-old F who presents for Bariatric Assessment. Patient resents today for bariatric follow-up. She's had some complaints of GERD. Past Medical History Past Medical History: No Reported History Additional Past Medical History / Comment(s): HIATAL HERNIA, ANEMIA, LAP BAND History of Any Multi-Drug Resistant Organisms: None Reported Past Surgical History: Bariatric Surgery, Cholecystectomy Additional Past Surgical History / Comment(s): Lap band surgery 2007. lap band removal conversion to sleeve gastrectomy 07-19-21 Past Anesthesia/Blood Transfusion Reactions: Postoperative Nausea & Vomiting (PONV) Past Psychological History: No Psychological Hx Reported Smoking Status: Never smoker Past Alcohol Use History: None Reported Past Drug Use History: None Reported - Past Family History Mother Family Medical History: No Reported History Surgical - Exam Vital Signs Temp Pulse BP 98 F 91 127/80 10/04/21 14:06 10/04/21 14:06 10/04/21 14:06 - General well developed, well nourished, no distress - Eyes PERRL - ENT normal pinna - Cardiovascular Rhythm: regular - Abdomen Abdomen: soft, non tender Bariatric Assessment & Plan Plan: Status post sleeve gastrectomy. He. Patient's GERD is minimal will be observed. She'll follow-up in 4 weeks. Bariatric Checklist Checklist: Plan: Checklist: EGD: 1. Hiatal hernia: 2. H. Pylori: HgbA1c: Vitamin D: Smoking: Primary care physician referral: DR. PERALTA Psychiatry clearance: Cardiology clearance: Sleep study: Diet journal: VTE risk score: VTE risk level: Rehab needs at discharge:
== END | disposition home or self-care (01) ==
LOC: BARWHC3 13:20
PROVIDERS: ATTEND Surgery
DX: Z48.815 Encounter for surgical aftercare following surgery on the digestive system (principal)
CPT/HCPCS: 97803; 99211

== ENCOUNTER → 2021-10-28 | Outpatient (CLI) | payer BC ==
[2021-10-28 23:01] LABS: HGB 13.2 g/dL (12.0-15.0); MCH 26.9 pg (27.0-32.0); MCHC 30.7 g/dL (32.0-37.0); MCV 87.6 fL (80.0-97.0); Mean Platelet Volume 11.3 fL (9.5-12.2); NRBC Per 100 WBC 0 /100 WBCS (0.0-0.0); Platelet Count 262 X 10*3/uL (140-440); RBC 4.91 X 10*6/uL (4.10-5.20); RDW 22.1 % (11.5-14.5); WBC 5.31 X 10*3/uL (4.50-10.00)
[2021-10-28 23:41] LABS: % Iron Saturation 12.21 (12.00-45.00); African American GFR (CKD) 123.3 (60.0-200.0); Albumin 4.2 g/dL (3.8-4.9); Albumin/Globulin Ratio 1.74 (1.60-3.17); Anion Gap 13.8 mmol/L (10.00-18.00); BUN/Creat Ratio 8.33 Ratio (12.00-20.00); Blood Urea Nitrogen 5.4 mg/dL (9.0-27.0); Calcium 9.1 mg/dL (8.7-10.3); Carbon Dioxide 22.1 mmol/L (20.0-27.5); Globulin 2.4 g/dL (1.6-3.3); Magnesium 2.2 mg/dL (1.5-2.4); Non-African American GFR(CKD) 106.4 (60.0-200.0); Potassium 4.4 mmol/L (3.5-5.5); Total Bilirubin 0.4 mg/dL (0.30-1.20); Total Protein 6.6 g/dL (6.2-8.2)
[2021-10-29 12:57] LABS: Zinc, Serum 57 ug/dL (60-130)
== END | disposition home or self-care (01) ==
LOC: LABWHC1 16:26
PROVIDERS: ATTEND Surgery
DX: E66.01 Morbid (severe) obesity due to excess calories (principal); D50.8 Other iron deficiency anemias; E44.0 Moderate protein-calorie malnutrition; E55.9 Vitamin D deficiency, unspecified; T56.894A Toxic effect of other metals, undetermined, initial encounter
CPT/HCPCS: 36415; 80053; 82306; 82607; 82728; 82746; 83540; 83550; 83735; 84255; 84425; 84443; 84590; 84630; 85027

== ENCOUNTER → 2021-11-22 | Outpatient (CLI) | payer BC ==
[2021-11-22 14:52] VITALS: BP 120/85; PULSE 70; TEMP 97.9; BMI 40.6
--- NOTE | 2021-11-23 16:01 | P.HPBAR ---
Bariatric H&P - History & Physicial H&P Date: 11/22/21 History & Physicial: Visit/CC: 4 month sleeve f/u Patient initial contact: Initial weight: Initial weight in pounds: Height: 5 ft 5 in Initial BMI: Last weight: Current weight: 110.677 kg Current weight in pounds: 244.00 Current BMI: 40.6 [place] body weight (based on NIH guidelines): 56.699 kg Excess body weight loss: The patient is a 46 year-old F who presents for Bariatric Assessment. Patient presents today for bariatric follow-up. She currently weighs 244 pounds. Her previously was 255 pounds. She has minimal complaints of GERD. Past Medical History Past Medical History: No Reported History Additional Past Medical History / Comment(s): HIATAL HERNIA, ANEMIA, LAP BAND History of Any Multi-Drug Resistant Organisms: None Reported Past Surgical History: Bariatric Surgery, Cholecystectomy Additional Past Surgical History / Comment(s): Lap band surgery 2007. lap band removal conversion to sleeve gastrectomy 07-19-21 Past Anesthesia/Blood Transfusion Reactions: Postoperative Nausea & Vomiting (PONV) Past Psychological History: No Psychological Hx Reported Smoking Status: Never smoker Past Alcohol Use History: None Reported Past Drug Use History: None Reported - Past Family History Mother Family Medical History: No Reported History Surgical - Exam Vital Signs Temp Pulse BP 97.9 F 70 120/85 11/22/21 14:49 11/22/21 14:49 11/22/21 14:49 - General well developed, well nourished, no distress - Eyes PERRL - Abdomen Abdomen: soft, non tender Bariatric Assessment & Plan Plan: Patient is doing quite well. Her GERD is minimal observed. She'll follow-up in 4 weeks. Bariatric Checklist Checklist: Plan: Checklist: EGD: 1. Hiatal hernia: 2. H. Pylori: HgbA1c: Vitamin D: Smoking: Primary care physician referral: DR. PERALTA Psychiatry clearance: Cardiology clearance: Sleep study: Diet journal: VTE risk score: VTE risk level: Rehab needs at discharge:
== END | disposition home or self-care (01) ==
LOC: BARWHC3 14:26
PROVIDERS: ATTEND Surgery
DX: K21.9 Gastro-esophageal reflux disease without esophagitis (principal)
CPT/HCPCS: 99211

== ENCOUNTER → 2021-12-27 | Outpatient (CLI) | payer BC ==
[2021-12-27 14:39] VITALS: BP 118/75; PULSE 79; TEMP 97.8; BMI 39.4
--- NOTE | 2022-01-10 15:06 | P.HPBAR ---
Bariatric H&P - History & Physicial H&P Date: 12/27/21 History & Physicial: Visit/CC: sleeve f/u Patient initial contact: Initial weight: Initial weight in pounds: Height: 5 ft 5 in Initial BMI: Last weight: Current weight: 107.501 kg Current weight in pounds: 237.00 Current BMI: 39.4 [place] body weight (based on NIH guidelines): 56.699 kg Excess body weight loss: The patient is a 46 year-old F who presents for Bariatric Assessment. Patient resents today for sleeve gastrectomy follow-up. She currently weighs 237 pounds. She appears weight 244 pounds. She has some mild GERD. Past Medical History Past Medical History: No Reported History Additional Past Medical History / Comment(s): HIATAL HERNIA, ANEMIA, LAP BAND History of Any Multi-Drug Resistant Organisms: None Reported Past Surgical History: Bariatric Surgery, Cholecystectomy Additional Past Surgical History / Comment(s): Lap band surgery 2007. lap band removal conversion to sleeve gastrectomy 07-19-21 Past Anesthesia/Blood Transfusion Reactions: Postoperative Nausea & Vomiting (PONV) Past Psychological History: No Psychological Hx Reported Smoking Status: Never smoker Past Alcohol Use History: None Reported Past Drug Use History: None Reported - Past Family History Mother Family Medical History: No Reported History Surgical - Exam Vital Signs Temp Pulse BP 97.8 F 79 118/75 12/27/21 14:36 12/27/21 14:36 12/27/21 14:36 - General well developed, well nourished, no distress - Eyes PERRL - ENT normal pinna - Neck no masses - Respiratory normal expansion - Cardiovascular Rhythm: regular - Abdomen Abdomen: soft, non tender Bariatric Assessment & Plan Plan: Resolving morbid obesity. Patient GERD is minimal will be observed. She'll follow-up in 4 weeks. Bariatric Checklist Checklist: Plan: Checklist: EGD: 1. Hiatal hernia: 2. H. Pylori: HgbA1c: Vitamin D: Smoking: Primary care physician referral: DR. PREALTA Psychiatry clearance: Cardiology clearance: Sleep study: Diet journal: VTE risk score: VTE risk level: Rehab needs at discharge:
== END | disposition home or self-care (01) ==
LOC: BARWHC3 14:25
PROVIDERS: ATTEND Surgery
DX: E66.01 Morbid (severe) obesity due to excess calories (principal); K21.9 Gastro-esophageal reflux disease without esophagitis; Z68.39 Body mass index [BMI] 39.0-39.9, adult
CPT/HCPCS: 99211

== ENCOUNTER → 2022-02-07 | Outpatient (CLI) | payer BC ==
--- NOTE | 2022-02-07 15:01 | P.HPBAR ---
Bariatric H&P - History & Physicial H&P Date: 02/07/22 History & Physicial: Visit/CC: Patient initial contact: Initial weight: Initial weight in pounds: Height: Initial BMI: Last weight: Current weight: Current weight in pounds: Current BMI: [place] body weight (based on NIH guidelines): Excess body weight loss: The patient is a 46 year-old F who presents for Bariatric Assessment.patient presents today for Pro follow-up. She's not been seen in several months. Her weight today is 229 pounds she is POC 237 pounds her last visit. Her last visit was 2 months ago.she has some minimal GERD. Past Medical History Past Medical History: No Reported History Additional Past Medical History / Comment(s): HIATAL HERNIA, ANEMIA, LAP BAND History of Any Multi-Drug Resistant Organisms: None Reported Past Surgical History: Bariatric Surgery, Cholecystectomy Additional Past Surgical History / Comment(s): Lap band surgery 2007. lap band removal conversion to sleeve gastrectomy 07-19-21 Past Anesthesia/Blood Transfusion Reactions: Postoperative Nausea & Vomiting (PONV) Past Psychological History: No Psychological Hx Reported Smoking Status: Never smoker Past Alcohol Use History: None Reported Past Drug Use History: None Reported - Past Family History Mother Family Medical History: No Reported History Surgical - Exam - General well developed, well nourished - Eyes PERRL - ENT normal pinna - Neck no masses - Respiratory normal expansion - Cardiovascular Rhythm: regular - Abdomen Abdomen: soft, non tender Bariatric Assessment & Plan Plan: morbid obesity. Patient's GERD is minimal and will be observed. She'll follow- up in 4 weeks. Bariatric Checklist Checklist: Plan: Checklist: EGD: 1. Hiatal hernia: 2. H. Pylori: HgbA1c: Vitamin D: Smoking: Primary care physician referral: DR. PERALTA Psychiatry clearance: Cardiology clearance: Sleep study: Diet journal: VTE risk score: VTE risk level: Rehab needs at discharge:
[2022-02-07 23:42] LABS: MCH 30.6 pg (27.0-32.0); MCHC 32.6 g/dL (32.0-37.0); MCV 93.9 fL (80.0-97.0); Mean Platelet Volume 10.7 fL (9.5-12.2); NRBC Per 100 WBC 0 /100 WBCS (0.0-0.0); Platelet Count 316 X 10*3/uL (140-440); RBC 4.58 X 10*6/uL (4.10-5.20); RDW 12.8 % (11.5-14.5); WBC 6.06 X 10*3/uL (4.50-10.00)
[2022-02-08 01:30] LABS: % Iron Saturation 13.74 (12.00-45.00); African American GFR (CKD) 111.9 (60.0-200.0); Albumin/Globulin Ratio 1.51 (1.60-3.17); Anion Gap 11.3 mmol/L (10.00-18.00); BUN/Creat Ratio 9.17 Ratio (12.00-20.00); Blood Urea Nitrogen 6.8 mg/dL (9.0-27.0); Calcium 9.1 mg/dL (8.7-10.3); Carbon Dioxide 23.5 mmol/L (20.0-27.5); Ferritin 14.3 ng/mL (10.0-291.0); Globulin 2.7 g/dL (1.6-3.3); Magnesium 2.1 mg/dL (1.5-2.4); Non-African American GFR(CKD) 96.5 (60.0-200.0); Potassium 4.2 mmol/L (3.5-5.5); Total Bilirubin 0.4 mg/dL (0.30-1.20); Total Protein 6.7 g/dL (6.2-8.2)
[2022-02-08 08:31] VITALS: BMI 38.1
[2022-02-08 11:40] LABS: Zinc, Serum 53 ug/dL (60-130)
[2022-02-08 15:33] VITALS: BP 127/77; PULSE 76
[2022-02-09 06:10] LABS: Vitamin A 52 ug/dL (38-106)
== END | disposition home or self-care (01) ==
LOC: BARWHC3 14:34
PROVIDERS: ATTEND Surgery
DX: E66.01 Morbid (severe) obesity due to excess calories (principal); D50.8 Other iron deficiency anemias; E44.0 Moderate protein-calorie malnutrition; E55.9 Vitamin D deficiency, unspecified; T56.894A Toxic effect of other metals, undetermined, initial encounter
CPT/HCPCS: 80053; 82306; 82607; 82728; 82746; 83540; 83550; 83735; 84255; 84425; 84443; 84590; 84630; 85027; 97803; 99211

== ENCOUNTER → 2022-05-30 | Outpatient (CLI) | payer BC ==
[2022-05-30 14:41] VITALS: BP 118/79; PULSE 76; TEMP 98.4; BMI 37.8
--- NOTE | 2022-05-30 15:15 | P.HPBAR ---
Bariatric H&P - History & Physicial H&P Date: 05/30/22 History & Physicial: Visit/CC: nine month follow up Patient initial contact: Initial weight: Initial weight in pounds: Height: 5 ft 5 in Initial BMI: Last weight: Current weight: 102.965 kg Current weight in pounds: 227.00 Current BMI: 37.8 [place] body weight (based on NIH guidelines): 56.699 kg Excess body weight loss: The patient is a 47 year-old F who presents for Bariatric Assessment. Patient resents today for repair to follow. She's had minimal complaints of GERD. She is doing quite well otherwise. Past Medical History Past Medical History: No Reported History Additional Past Medical History / Comment(s): HIATAL HERNIA, ANEMIA, LAP BAND History of Any Multi-Drug Resistant Organisms: None Reported Past Surgical History: Bariatric Surgery, Cholecystectomy Additional Past Surgical History / Comment(s): Lap band surgery 2007. lap band removal conversion to sleeve gastrectomy 07-19-21 Past Anesthesia/Blood Transfusion Reactions: Postoperative Nausea & Vomiting (PONV) Smoking Status: Never smoker - Past Family History Mother Family Medical History: No Reported History Surgical - Exam Vital Signs Temp Pulse BP 98.4 F 76 118/79 05/30/22 14:40 05/30/22 14:40 05/30/22 14:40 - General well developed, well nourished, no distress - Eyes PERRL - ENT normal pinna, normal nares - Neck no masses - Respiratory normal expansion - Cardiovascular Rhythm: regular - Abdomen Abdomen: soft, non tender Bariatric Assessment & Plan Plan: Status post sleeve gastric. Patient GERD is minimal and will be observed. She'll follow-up in 4 weeks. Bariatric Checklist Checklist: Plan: Checklist: EGD: 1. Hiatal hernia: 2. H. Pylori: HgbA1c: Vitamin D: Smoking: Primary care physician referral: DR. PERALTA Psychiatry clearance: Cardiology clearance: Sleep study: Diet journal: VTE risk score: VTE risk level: Rehab needs at discharge:
== END ==
LOC: BARWHC3 13:55
PROVIDERS: ATTEND Surgery
DX: E66.01 Morbid (severe) obesity due to excess calories (principal); Z98.84 Bariatric surgery status; K21.9 Gastro-esophageal reflux disease without esophagitis; Z68.37 Body mass index [BMI] 37.0-37.9, adult
CPT/HCPCS: 97803; 99211

== ENCOUNTER → 2022-07-18 | Outpatient (CLI) | payer BC ==
[2022-07-18 14:47] VITALS: BP 129/86; PULSE 75; TEMP 98; BMI 37.4
[2022-07-18 22:34] LABS: HCT 44.9 % (37.2-46.3); HGB 13.8 g/dL (12.0-15.0); MCH 27.8 pg (27.0-32.0); MCHC 30.7 g/dL (32.0-37.0); MCV 90.3 fL (80.0-97.0); Mean Platelet Volume 10.5 fL (9.5-12.2); NRBC Per 100 WBC 0 /100 WBCS (0.0-0.0); Platelet Count 297 X 10*3/uL (140-440); RBC 4.97 X 10*6/uL (4.10-5.20); RDW 14.3 % (11.5-14.5); WBC 5.41 X 10*3/uL (4.50-10.00)
[2022-07-18 23:23] LABS: African American GFR (CKD) 101.8 (60.0-200.0); Albumin 4.2 g/dL (3.8-4.9); Albumin/Globulin Ratio 1.62 (1.60-3.17); BUN/Creat Ratio 10.25 Ratio (12.00-20.00); Blood Urea Nitrogen 8.2 mg/dL (9.0-27.0); Calcium 8.9 mg/dL (8.7-10.3); Globulin 2.6 g/dL (1.6-3.3); Magnesium 2.3 mg/dL (1.5-2.4); Non-African American GFR(CKD) 87.8 (60.0-200.0); Total Bilirubin 0.2 mg/dL (0.30-1.20); Total Protein 6.8 g/dL (6.2-8.2)
[2022-07-19 01:46] LABS: % Iron Saturation 4.56 (12.00-45.00); Ferritin 11.4 ng/mL (10.0-291.0)
--- NOTE | 2022-07-19 09:49 | P.HPBAR ---
Bariatric H&P - History & Physicial H&P Date: 07/18/22 History & Physicial: Visit/CC: 1 year sleeve F/U Patient initial contact: Initial weight: Initial weight in pounds: Height: 5 ft 5 in Initial BMI: Last weight: Current weight: 102.058 kg Current weight in pounds: 225.00 Current BMI: 37.4 [place] body weight (based on NIH guidelines): 56.699 kg Excess body weight loss: The patient is a 47 year-old F who presents for Bariatric Assessment. Patient presents today for bariatric follow-up. She is brought in one year postop. Patient is an excellent weight loss. Her weight today is 225 pounds. She's had some minimal GERD. She denies any dysphagia Past Medical History Past Medical History: No Reported History Additional Past Medical History / Comment(s): HIATAL HERNIA, ANEMIA, LAP BAND History of Any Multi-Drug Resistant Organisms: None Reported Past Surgical History: Bariatric Surgery, Cholecystectomy Additional Past Surgical History / Comment(s): Lap band surgery 2007. lap band removal conversion to sleeve gastrectomy 07-19-21 Past Anesthesia/Blood Transfusion Reactions: Postoperative Nausea & Vomiting (PONV) Past Psychological History: No Psychological Hx Reported Smoking Status: Never smoker Past Alcohol Use History: None Reported Past Drug Use History: None Reported - Past Family History Mother Family Medical History: No Reported History Surgical - Exam Vital Signs Temp Pulse BP 98 F 75 129/86 07/18/22 14:44 07/18/22 14:44 07/18/22 14:44 - General well developed, well nourished, no distress - ENT normal pinna - Respiratory normal expansion - Abdomen Abdomen: soft, non tender Results - Labs 07/18/22 15:14 07/18/22 15:14 Abnormal Lab Results - Last 24 Hours (Table) 07/18/22 07/18/22 Range/Units 15:14 15:14 MCHC 30.7 L (32.0-37.0) g/dL Anion Gap 9.00 L (10.00-18.00) mmol/L BUN 8.2 L (9.0-27.0) mg/dL BUN/Creatinine Ratio 10.25 L (12.00-20.00) Ratio Iron 24 L (50-170) ug/dL TIBC 531 H (228-460) ug/dL % Saturation 4.56 L (12.00-45.00) Transferrin 379.0 H (204.0-354.0) mg/dL Total Bilirubin 0.20 L (0.30-1.20) mg/dL Diabetes panel 07/18/22 Range/Units 15:14 Sodium 141 (135-145) mmol/L Potassium 4.0 (3.5-5.5) mmol/L Chloride 106 (96-109) mmol/L Carbon Dioxide 26.0 (20.0-27.5) mmol/L BUN 8.2 L (9.0-27.0) mg/dL Creatinine 0.8 (0.6-1.5) mg/dL Glucose 91 (70-110) mg/dL Calcium 8.9 (8.7-10.3) mg/dL AST 21 (13-35) U/L ALT 19 (8-44) U/L Alkaline Phosphatase 81 (41-126) U/L Total Protein 6.8 (6.2-8.2) g/dL Albumin 4.2 (3.8-4.9) g/dL Thyroid panel 07/18/22 Range/Units 15:14 TSH 2.460 (0.350-5.500) uIU/mL Calcium panel 07/18/22 Range/Units 15:14 Calcium 8.9 (8.7-10.3) mg/dL Albumin 4.2 (3.8-4.9) g/dL Pituitary panel 07/18/22 Range/Units 15:14 Sodium 141 (135-145) mmol/L Potassium 4.0 (3.5-5.5) mmol/L Chloride 106 (96-109) mmol/L Carbon Dioxide 26.0 (20.0-27.5) mmol/L BUN 8.2 L (9.0-27.0) mg/dL Creatinine 0.8 (0.6-1.5) mg/dL Glucose 91 (70-110) mg/dL Calcium 8.9 (8.7-10.3) mg/dL TSH 2.460 (0.350-5.500) uIU/mL Adrenal panel 07/18/22 Range/Units 15:14 Sodium 141 (135-145) mmol/L Potassium 4.0 (3.5-5.5) mmol/L Chloride 106 (96-109) mmol/L Carbon Dioxide 26.0 (20.0-27.5) mmol/L BUN 8.2 L (9.0-27.0) mg/dL Creatinine 0.8 (0.6-1.5) mg/dL Glucose 91 (70-110) mg/dL Calcium 8.9 (8.7-10.3) mg/dL Total Bilirubin 0.20 L (0.30-1.20) mg/dL AST 21 (13-35) U/L ALT 19 (8-44) U/L Alkaline Phosphatase 81 (41-126) U/L Total Protein 6.8 (6.2-8.2) g/dL Albumin 4.2 (3.8-4.9) g/dL Bariatric Assessment & Plan Plan: Status post sleeve gastrectomy. Patient's weight loss is excellent. She will have her routine labs drawn today. She'll follow-up in 3 months. Bariatric Checklist Checklist: Plan: Checklist: EGD: 1. Hiatal hernia: 2. H. Pylori: HgbA1c: Vitamin D: Smoking: Primary care physician referral: DR. PERALTA Psychiatry clearance: Cardiology clearance: Sleep study: Diet journal: VTE risk score: VTE risk level: Rehab needs at discharge:
[2022-07-19 12:40] LABS: Zinc, Serum 58 ug/dL (60-130)
[2022-07-20 10:15] LABS: Vit B1(Thiamine) 54 ug/L (38-122)
[2022-07-20 12:28] LABS: Vitamin A 61 ug/dL (38-106)
== END ==
LOC: BARWHC3 14:30
PROVIDERS: ATTEND Surgery
DX: E66.01 Morbid (severe) obesity due to excess calories (principal); Z71.3 Dietary counseling and surveillance; Z68.37 Body mass index [BMI] 37.0-37.9, adult
CPT/HCPCS: 80053; 82306; 82607; 82728; 82746; 83540; 83550; 83735; 84255; 84425; 84443; 84590; 84630; 85027; 99211